=== PATIENT | male | born 1960 | race Caucasian/White ===

== ENCOUNTER → 2016-09-29 | Outpatient (CLI) | payer BC | END | disposition home or self-care (01) | LOC: PCVCIMAG 08:45 | PROVIDERS: ATTEND Internal Medicine | DX: I25.5 Ischemic cardiomyopathy (principal); I25.10 Atherosclerotic heart disease of native coronary artery without angina pectoris; Z95.1 Presence of aortocoronary bypass graft | CPT/HCPCS: 93306 ==

== ENCOUNTER → 2017-02-05 | Outpatient (CLI) | payer BC | LOC: PCVCIMAG 13:27 | PROVIDERS: ATTEND Internal Medicine | DX: I65.23 Occlusion and stenosis of bilateral carotid arteries (principal); I25.10 Atherosclerotic heart disease of native coronary artery without angina pectoris; E78.5 Hyperlipidemia, unspecified; I25.5 Ischemic cardiomyopathy; I50.22 Chronic systolic (congestive) heart failure; I10 Essential (primary) hypertension; G47.33 Obstructive sleep apnea (adult) (pediatric); Z95.810 Presence of automatic (implantable) cardiac defibrillator; Z87.891 Personal history of nicotine dependence | CPT/HCPCS: 80061; 93005; 93880 ==

== ENCOUNTER → 2018-01-27 | Outpatient (CLI) | payer BC | END | disposition home or self-care (01) | LOC: PCVCIMAG 14:44 | DX: I65.23 Occlusion and stenosis of bilateral carotid arteries (principal); I08.8 Other rheumatic multiple valve diseases; I25.10 Atherosclerotic heart disease of native coronary artery without angina pectoris; I42.9 Cardiomyopathy, unspecified | CPT/HCPCS: 93306; 93880 ==

== ENCOUNTER → 2018-02-04 | Outpatient (CLI) | payer BC ==
[~2018-02-04] MED LIST: REGADENOSON 0.4 MG/5 ML DISP.SYRIN. IV
== END | disposition home or self-care (01) ==
LOC: PCVCIMAG 08:27
DX: I25.10 Atherosclerotic heart disease of native coronary artery without angina pectoris (principal); R07.89 Other chest pain; I10 Essential (primary) hypertension; R06.00 Dyspnea, unspecified; E78.5 Hyperlipidemia, unspecified; Z95.1 Presence of aortocoronary bypass graft
CPT/HCPCS: 78452; 93017; A9500; J2785

== ENCOUNTER → 2019-04-12 | Outpatient (CLI) | payer BC ==
--- NOTE | 2019-04-12 08:48 | PCVCIMAG ---
APPROVED REPORT Study performed: 04/12/2019 07:46:21 EXAM: Comprehensive 2D, Doppler, and color-flow Echocardiogram Patient Location: Echo lab Status: routine BSA: 2.12 HR: 67 bpmBP: 122/64 mmHg Rhythm: NSR Other Information Study Quality: Adequate Indications Congestive Heart Failure Ischemic cardiomyopathy, ICD 2D Dimensions IVSd: 9.58 (7-11mm) LVDd: 56.01 mm PWd: 9.74 (7-11mm)Ascending Ao: 31.75 (22-36mm) LVDs: 46.78 (25-40mm) Left Atrium: 39.76 (27-40mm) Aortic Root: 30.33 mm LV Single Plane 4CH: 34.74 % LV Single Plane 2CH: 34.25 % Biplane EF: 34.4 % Volumes Left Atrial Volume (Systole) Single Plane 4CH: 54.65 mLSingle Plane 2CH: 61.59 mL LA ESV Index: 27.00 mL/m2 Aortic Valve AoV Peak Ethan.: 1.17 m/s AO Peak Gr.: 5.52 mmHgLVOT Max P.51 mmHg LVOT Max V: 0.61 m/s Mitral Valve E/A Ratio: 1.6 MV Decel. Time: 242.48 ms MV E Max Ethan.: 0.71 m/s MV A Ethan.: 0.45 m/s IVRT: 96.89 ms Pulmonary Valve PV Peak Ethan.: 1.07 m/sPV Peak Gr.: 4.56 mmHg Pulmonary Vein P Vein S: 0.27 m/sP Vein A: 0.26 m/s P Vein D: 0.37 m/sP Vein A Dur.: 134.9 msec P Vein S/D Ratio: 0.73 Tricuspid Valve TR Peak Ethan.: 2.40 m/s TR Peak Gr.: 23.02 mmHg TV Vmax: 0.47 m/s Left Ventricle Left ventricle is borderline dilated. Inferior and inferolateral hypokinesis. There is normal left ventricular wall thickness. Left ventricular systolic function is moderately decreased. LVEF is 35%. Moderate diastolic dysfunction is present (pseudonormal filling). Right Ventricle The right ventricle is normal size. The right ventricular systolic function is normal. Pacemaker lead is present in the right ventricle. Atria The left atrium size is normal. The right atrium size is normal. Pacemaker lead is present in the right atrium. Aortic Valve The aortic valve is normal in structure. No aortic regurgitation is present. There is no aortic valvular stenosis. Mitral Valve The mitral valve is normal in structure. Mild mitral regurgitation. No evidence of mitral valve stenosis. Tricuspid Valve The tricuspid valve is normal in structure. Mild tricuspid regurgitation with PAP of 30 mmHg. Pulmonic Valve The pulmonary valve is normal in structure. There is no pulmonic valvular regurgitation. Great Vessels The aortic root is normal in size. IVC is normal in size and collapses >50% with inspiration. Pericardium There is no pericardial effusion. There is no pleural effusion. <Conclusion> Left ventricular systolic function is moderately decreased. Inferior and inferolateral hypokinesis. LVEF is 35%. Moderate diastolic dysfunction The aortic valve is normal in structure. No aortic regurgitation or stenosis The mitral valve is normal in structure. Mild mitral regurgitation. Mild tricuspid regurgitation with pulmonary artery pressure of 30 mmHg. There is no pericardial effusion.
--- NOTE | 2019-04-12 08:53 | PCVCIMAG ---
APPROVED REPORT Indications Stenosis Risk Factors Hyperlipidemia Doppler Spectral Velocity Analysis PSV / EDVPSV / EDV ECA (R) 167 / 35 cm/sECA (L) 174 / 32 cm/s dICA (R) 50 / 18 cm/sdICA (L) 62 / 25 cm/s Eben (R) 111 / 32 cm/smICA (L) 97 / 35 cm/s pICA (R) 132 / 56 cm/spICA (L) 109 / 42 cm/s Bulb (R) 69 / 19 cm/sBulb (L) 84 / 29 cm/s dCCA (R) 62 / 16 cm/sdCCA (L) 89 / 31 cm/s mCCA (R) 89 / 23 cm/smCCA (L) 94 / 27 cm/s Vert (R) 32 / 11 cm/sVert (L) 37 / 10 cm/s ICA/CCA 1.22 ICA/CCA 1.49 Basic Measurements Blood Pressure: Pulses: Right Left RightLeft Brachial(Sitting) 104/44qsLq232/58mmHgTemporal Real Time B-Mode Imaging Vert. (R)AntegradeVert. (L)Antegrade Findings The right carotid bulb has moderate calcified plaque. The right proximal internal carotid artery shows 60% stenosis. The right common carotid artery shows no significant stenosis. The right external carotid artery shows >50% stenosis. The left carotid bulb has moderately severe calcified plaque. The left proximal internal carotid artery shows <40% stenosis. The left common carotid artery shows no significant stenosis. The left external carotid artery shows no significant stenosis. Conclusion 1. Right internal carotid artery stenosis (60%) 2. Left internal carotid artery stenosis (<40%) 3. Antegrade vertebral flow Similar to a study dated January 2018.
== END | disposition home or self-care (01) ==
LOC: PCVCIMAG 07:47
PROVIDERS: ATTEND Internal Medicine
DX: I65.23 Occlusion and stenosis of bilateral carotid arteries (principal); I08.1 Rheumatic disorders of both mitral and tricuspid valves; E78.5 Hyperlipidemia, unspecified; I11.0 Hypertensive heart disease with heart failure; I50.9 Heart failure, unspecified
CPT/HCPCS: 93306; 93880